=== PATIENT | male | born 1960 | race Caucasian/White ===

== ENCOUNTER → 2016-08-15 | Outpatient (CLI) | payer OTHER ==
[~2016-08-15] VITALS: Ht 172.7 cm; Wt 73.0 kg
[~2016-08-15] MED LIST: ADDERALL 10 MG10 MG PO; AMITRIPTYLINE H10 M3 PO; AMITRIPTYLINE H25 M2 PO; CELEXA20 MG PO; CELEXA40 MG PO; CRESTOR20 MG PO; CYCLOBENZAPRINE; FISH OIL 1,001000 M2 PO; FISHOIL; FLEXERIL; FLEXERIL PO; FOLIC ACID; FOLIC ACID1 MG PO; LIPITOR40 MG; LISINOPRIL20 MG PO; MIRALAX255 GM; NEURONTIN 300300 M1 PO; OXYCONTIN10 M1 PO; OXYCONTIN20 MG PO; PEPCID20 MG PO; PERCOCET 5-3251 EACH PO; PLAVIX 75 MG TA75 MG PO; TRILIPIX135 MG PO; ULTRAM 50MG TAB50 MG PO; VITAMIN B-12100 MC1; VITAMIN B-625 MG; VITAMIN D-32000 UNIT PO; VITAMIN D400 UNI1; VOLTAREN GEL 1100 G2 TOP; Vitamin D PO
--- NOTE | ~2016-08-15 | HPC ---
[facility] [place] [address] PAIN MANAGEMENT CONSULTATION Name: EMMANELI Tee Room #: [facility] [id number] Admission: 08/15/16 Attend Phys: Laureen Toribio MD Discharge: Date of : 64 Report #: [id number] THIS REPORT FOR: //name// CC: Laureen CHAMBERLAIN DATE OF SERVICE: 08/15/2016 CHIEF COMPLAINT: Pain, still radiating down into my leg on both sides. FOLLOWUP HISTORY: The patient is a 56-year-old gentleman who has been followed in the pain clinic because of lumbar radiculopathy. He underwent transforaminal epidural steroid injections at the last visit. He noted some improvement in his pain, but continues to have pain and discomfort down in both legs. The left leg is most problematic. He rates it as a 7/10. He continues to be limited in his ability to engage in activities of daily living. He finds that the Voltaren gel has been helpful and he would like to continue with that medication. PHYSICAL EXAMINATION: VITAL SIGNS: Blood pressure 140/88, pulse 85, respiratory rate 16, room air saturation 97%. MUSCULOSKELETAL: The patient has pain and discomfort in the low back and down into his legs bilaterally. He has not fallen since we saw him last. He does note some pain and discomfort with numbness and weakness in the lower extremities, particularly on the left side. IMPRESSION: Lumbar radiculopathy, status post instrumentation with rods in the low back area. Failed back syndrome. RECOMMENDATIONS: We discussed treatment options with the patient. Risks and benefits of an epidural steroid injection were again reviewed. Possible complications were discussed. The option of transforaminal epidural steroid injection in the L5-S1 distribution which is where the patient is experiencing this pain were reviewed. The patient elects to proceed. PROCEDURE NOTE: The patient was placed in the prone position. Fluoroscopy was used to identify the left and right L5-S1 distribution. After appropriate placement of a 20-gauge spinal needle, a total of 80 mg Depo-Medrol was placed on the left. Similar technique was used on the right. A total of 80 mg Depo-Medrol was injected into this area. The patient tolerated the procedure well. There were no complications. He will follow up in the future as needed. [address] [address] PAIN MANAGEMENT CONSULTATION Name: EMMANELI Randal Room #: REG [facility] [id number] Admission: 08/15/16 Attend Phys: Laureen Toribio MD Discharge: Date of : 64 Report #: [id number] We would like to thank you for letting us participate in his care. We hope he continues to improve. Total of 22 seconds fluoroscopy time was used. <ELECTRONICALLY SIGNED> By: Laureen Toribio MD 09/02/16 1018 [id number] [id number] Laureen Toribio MD /nt
[2016-08-15 13:08] VITALS: BP 140/88
== END | disposition home or self-care (01) ==
LOC: PAIN 07:32
DX: M54.16 Radiculopathy, lumbar region (principal); G89.29 Other chronic pain; F17.200 Nicotine dependence, unspecified, uncomplicated; M96.1 Postlaminectomy syndrome, not elsewhere classified; Z98.890 Other specified postprocedural states

== ENCOUNTER → 2016-12-17 | Outpatient (CLI) | payer OTHER ==
[~2016-12-17] VITALS: Ht 172.7 cm; Wt 75.3 kg
[~2016-12-17] MED LIST changes: +COREG3.125 MG PO; +NEURONTIN600 MG PO; +PLAVIX 75 MG TA75 M1 PO
--- NOTE | ~2016-12-17 | HPC ---
[facility] [place] [address] [place] [address] PAIN MANAGEMENT CONSULTATION Name: NELI CARTER Room #: REG [facility] ErisLeenaReeseLeena#: [id number] Admission: 12/17/16 Attend Phys: Laureen Toribio MD Discharge: Date of : 64 Report #: [id number] THIS REPORT FOR: //name// CC: Nessa Soto DO DATE OF SERVICE: 12/17/2016 FOLLOWUP COMPLAINT: "Still have pain down in my back and legs." FOLLOWUP HISTORY: The patient is a 56-year-old gentleman who has been followed in the pain clinic because of lumbar radiculopathy. He also has problems with his heart. As you recall, he had stents placed earlier a few months ago. He was doing relatively well. His states that he started to have symptoms similar to those he had experienced initially. After a reevaluation by his administrative aide, he was found to have a 90% lesion on the posterior side of his heart. A stent has been placed. He has noted the improvement. He feels that the Voltaren gel is helpful and that Elavil 25 mg 1-2 tablets at bedtime has been efficacious. He would like to have these renewed. PHYSICAL EXAMINATION: Blood pressure is 129/89, pulse 68, respiratory rate 16, room air saturation 98%. The patient has pain and discomfort which continued to radiate down into his back involving his legs. He has noted an improvement in his physical being. He feels that the stent in the posterior portion of his heart has increased his level of endurance and his ability to engage in activities of daily living with less discomfort. IMPRESSION: 1. Lumbar radiculopathy, status post instrumentation and rods in the low back area/failed back syndrome. 2. Cardiovascular history, status post stent placement about 2 months ago and new stent placement about a week ago. He had a 90% lesion of occlusion in the posterior portion of his heart. RECOMMENDATIONS: We will continue with his current medical regimen of Voltaren and Elavil. He will call us if he has any problems with his medications. We would like to thank you for letting us participate in his care. He continues to have pain and discomfort in the L5-S1 distribution. By: [id number] Laureen Toribio MD /nt
[2016-12-17 11:31] VITALS: BP 129/89
== END | disposition home or self-care (01) ==
LOC: PAIN 07:22
DX: M54.16 Radiculopathy, lumbar region (principal); G89.29 Other chronic pain; I25.2 Old myocardial infarction; Z95.9 Presence of cardiac and vascular implant and graft, unspecified; F17.200 Nicotine dependence, unspecified, uncomplicated; Z98.890 Other specified postprocedural states

== ENCOUNTER → 2017-06-12 | Outpatient (CLI) | payer OTHER ==
[~2017-06-12] VITALS: Ht 172.7 cm; Wt 74.7 kg
[~2017-06-12] MED LIST changes: +ATORVASTATIN CA40 MG PO; +NITROGLYCERIN0.4 MG SUBLING
--- NOTE | ~2017-06-12 | HPC ---
[facility] [address] [facility] [place] [address] PAIN MANAGEMENT CONSULTATION Name: EMMANELI Tee Room #: REG [facility].#: [id number] Admission: 06/12/17 Attend Phys: Laureen Toribio MD Discharge: Date of : 64 Report #: [id number] THIS REPORT FOR: //name// CC: Nessa Soto DO DATE OF SERVICE: 06/12/2017 FOLLOWUP COMPLAINT: "I fell and broke some ribs, but my back is hurting the worst. I would like to get an injection there." FOLLOWUP HISTORY: The patient is a 56-year-old gentleman who has been seen in the pain clinic in the past because of lumbar radiculopathy. He has had back surgeries. He has instrumentation in the lower portion of his back. He states that he had trauma to his ____. He broke some ribs. At this point, he is having pain and discomfort in the lower portion of his back, which radiates down into his legs. He would like to proceed with a transforaminal epidural steroid injection at this juncture. He is off his Plavix. He feels that this would be more helpful than the intercostal rib injections at this juncture. PHYSICAL EXAMINATION: Blood pressure 122/83, pulse 71, respiratory rate 14, room air saturation 96%. Height 5 feet 8 inches, weight 164 pounds, BMI is 25. The patient has pain and discomfort, which radiates down to the lower portion of his back into the L5-S1 distribution bilaterally. IMPRESSION: 1. Lumbar radiculopathy, status post instrumentation and rods in the lower portion of his back with failed back syndrome. 2. Cardiovascular history, status post stent placements and followed by his [employer] ax consultant - the patient has stopped taking the Plavix for a week. 3. Rib fractures. RECOMMENDATIONS: We discussed treatment options with the patient and his . Risks and benefits of an epidural steroid injection were again reviewed. Possible complications were discussed. He elects to proceed. PROCEDURE NOTE: The patient was placed in prone position. Fluoroscopy was used to identify the L5-S1 nerve roots on the left as well as the right. After appropriate cleansing with Betadine solution, this area was infiltrated with 0.25% bupivacaine. A total of 2 mL on each side was placed. A 20-gauge spinal needle was then advanced into the appropriate placement using fluoroscopy. After appropriate visualization, a total of 80 mg Depo-Medrol was injected on the left side and a total of 80 mg Depo-Medrol was injected on the right. The patient tolerated the procedure well. His pain was rated as 5/10 at the time of [address] [address] PAIN MANAGEMENT CONSULTATION Name: NELI CARTER Room #: REG CL Holly#: [id number] Admission: 06/12/17 Attend Phys: Laureen Toribio MD Discharge: Date of : 64 Report #: [id number] discharge. There were no clinical compromise noted with muscles or weakness. He will follow up in the near future. He will resume taking Plavix. We would like to thank you for letting us participate in his care. We hope he continues to improve. By: [phone] Laureen Toribio MD /PMT
[2017-06-12 11:32] VITALS: BP 122/83
== END | disposition home or self-care (01) ==
LOC: PAIN 09-19 09:55
DX: M54.16 Radiculopathy, lumbar region (principal); Z95.1 Presence of aortocoronary bypass graft; F17.200 Nicotine dependence, unspecified, uncomplicated

== ENCOUNTER → 2017-07-03 | Outpatient (CLI) | payer OTHER ==
[~2017-07-03] VITALS: Ht 172.7 cm; Wt 76.7 kg
--- NOTE | ~2017-07-03 | HPC ---
[facility] [place] [address] PAIN MANAGEMENT CONSULTATION Name: EMMANELI Tee Room #: REG [facility] [id number] Admission: 07/03/17 Attend Phys: Laureen Toribio MD Discharge: Date of : 64 Report #: [id number] THIS REPORT FOR: //name// CC: Nessa Soto DO DATE OF SERVICE: 07/03/2017 FOLLOWUP COMPLAINT: The pain was helped after the last injection, but still having some pain down into my right side and left side. FOLLOWUP HISTORY: The patient is a very pleasant 56-year-old gentleman who has been seen in the pain clinic because of chronic back pain secondary to failed back syndrome. As you recall, he has instrumentation with pedicle screws and rods in his lower back. He underwent a transforaminal epidural steroid injection at the last visit. He did note improvement in his pain. He rates it as a 7/10 at this juncture. It still continues to be problematic and limits his ability to engage in activities of daily living. He feels that another injection would be helpful and would like to proceed. He has had no complications from the last procedure. PHYSICAL EXAMINATION: Blood pressure 134/96, pulse 82, respiratory rate 16, room air saturation 97%. Height 5 feet 8 inches, weight 169 pounds, BMI is 25. The patient has pain and discomfort in the right and left L5-S1 nerve root distribution. IMPRESSION: 1. Lumbar radiculopathy, status post instrumentation and rods in the lower portion of his back in L3, L4, and L5 and in the sacral area. 2. Cardiovascular history is stable at this juncture status post stent placement. The patient states that he was able to stop taking his Plavix for a week with the agreement breech with his licensed mortgage loan officer. 3. History of rib fractures. RECOMMENDATIONS: We discussed treatment options with the patient. Risks and benefits again of an epidural steroid injection were discussed. They are possibility of infection, increased muscle soreness, headache, bleeding, increased muscle trauma, nerve damage and the patient elects to proceed. PROCEDURE NOTE: The patient was placed in the prone position. The left and right L5-S1 area were identified. A 20-gauge spinal needle was then advanced into the appropriate position using fluoroscopy. After appropriate placement was noted, a total of 80 mg Depo-Medrol was injected in the left and 80 mg of Depo-Medrol was injected in the right. The area had been infiltrated with 0.25% [address] [address] PAIN MANAGEMENT CONSULTATION Name: NELI CARTER Room #: REG [facility]#: [id number] Admission: 07/03/17 Attend Phys: Laureen Toribio MD Discharge: Date of : 64 Report #: [id number] bupivacaine. The patient tolerated the procedure well. There were no complications. He remained in the pain clinic for an appropriate amount of time. He will follow up in the future as needed. We would like to thank you for letting us participate in his care. We hope he continues to improve. <ELECTRONICALLY SIGNED> By: Laureen Toribio MD 07/16/17 0945 [id number] [id number] Laureen Toribio MD /PMT
[2017-07-03 13:34] VITALS: BP 134/96
== END | disposition home or self-care (01) ==
LOC: PAIN 07:06
DX: M54.16 Radiculopathy, lumbar region (principal); G89.29 Other chronic pain; I25.2 Old myocardial infarction; F17.210 Nicotine dependence, cigarettes, uncomplicated; Z86.79 Personal history of other diseases of the circulatory system; Z87.81 Personal history of (healed) traumatic fracture; Z98.890 Other specified postprocedural states; Z79.899 Other long term (current) drug therapy; Z79.891 Long term (current) use of opiate analgesic

== ENCOUNTER → 2017-08-28 | Outpatient (CLI) | payer OTHER ==
[~2017-08-28] VITALS: Ht 172.7 cm; Wt 77.6 kg
--- NOTE | ~2017-08-28 | HPC ---
[facility] [place] [place] [address] PAIN MANAGEMENT CONSULTATION Name: NELI CARTER Room #: REG [facility] Gaudencio.#: [id number] Admission: 08/28/17 Attend Phys: Laureen Toribio MD Discharge: Date of : 64 Report #: [id number] THIS REPORT FOR: //name// CC: Laureen Castillo DO DATE OF SERVICE: 08/28/2017 FOLLOWUP COMPLAINT: I am here for another injection, the last one was helpful. FOLLOWUP HISTORY: The patient is a 57-year-old gentleman, who has been seen in the pain clinic because of lumbar radiculopathy. As you recall, he has had low back surgeries with fusion with rods and pedicle screws. He returns today indicating that his pain has started to reoccur. It involves his lower back with pain radiating down into his tailbone and down into his legs bilaterally to the level of his knee. This is most problematic in the posterior portion of his legs. He has undergone epidural steroid injections using the transforaminal approach in the past and gleaned benefits from these. He is not on a blood thinner at this juncture and would like to proceed with another epidural steroid injection. He has not had any new problems with his heart. As you recall, he has had stents placed. Overall, things continue to go reasonably well. ALLERGIES: No known drug allergy. MEDICATIONS: Lipitor 40 mg daily, nitroglycerin 0.4 sublingual p.r.n., Voltaren gel 1% 2 grams topical q.i.d., amitriptyline 25 mg at bedtime, gabapentin 600 mg q.i.d., Celexa 20 mg daily, Coreg 3.125 mg, Plavix 75 mg, Flexeril 10 mg, Pepcid 20 mg, vitamin D3, OxyContin 10 mg t.i.d., folic acid, fish oil, Zestril 20 mg, MiraLax 255 grams, vitamin B12, vitamin B6. PAIN CLINIC ASSESSMENT: 1. No significant history of osteoarthritis, history of rheumatoid arthritis. 2. Height 5 feet 8 inches, weight 171 pounds, BMI is 26. 3. VITAL SIGNS: Blood pressure 156/102, pulse 68, respiratory rate 16, room air saturation is 96%. 4. Pain intensity 02/02. 5. Fall risk. The patient has not fallen in the last 3 months. He needs no assistance with ambulating. 6. The patient is on Plavix. 7. The patient is being treated for hypertension. 8. The patient continues on a medication regimen, which includes opioids and has signed a contract. 9. Risk management tool. 10. Functional assessment tool. 11. Recreational. The patient denies use of recreational [place] [address] PAIN MANAGEMENT CONSULTATION Name: PATRICIA CARTERORY Randal [facility] #: [facility] [id number] Admission: 08/28/17 Attend Phys: Laureen Toribio MD Discharge: Date of : 64 Report #: [id number] stopped smoking since his heart event. 12. Denies use of alcoholic beverages. IMPRESSION: 1. Lumbar radiculopathy with exacerbation secondary to failed back syndrome. 2. History of Myofascial pain. 3. History of right shoulder pain. 4. Hypertension. 5. Anticoagulated secondary to stents in his heart. 7. History of rib fractures. 8. Hypercholesterolemia. RECOMMENDATIONS: We discussed treatment option with the patient. He has gleaned significant benefit from transforaminal epidural steroid injections. At this juncture, he rates his pain as a 7/10. He feels that epidural steroid injections have been beneficial and would like to proceed with another. He has stopped taking his Plavix medication, so he is not anticoagulated today. He would also like to have his medications renewed. We have reviewed them and we will provide him with a script for the next 3 months. He is aware of the possible complication of the procedure, which we discussed. They include but are not limited to infection, increased muscle soreness, headache, bleeding, spinal nerve damage, and the patient elects to proceed. PROCEDURE NOTE: The patient was helped on to the examination table. His back was sterilely prepped in the lumbar area. Betadine was used. A 17-gauge Tuohy epidural needle was used. 0.25% bupivacaine had been infiltrated into the area prior to the injection. Anterior posterior as well as lateral viewing using the Fluoroscopy was used to ensure appropriate needle placement. At the left L5-S1 area, the target area was noted. A skin wheal was raised. A 20-gauge spinal needle was then advanced into the appropriate placement using anterior, posterior, and lateral fluoroscopy examination. The right contralateral side was treated in a like fashion after a skin wheal with 0.2% bupivacaine was provided a 25-gauge needle was then advanced into the right L5-S1 area. After appropriate examination using fluoroscopy. A total of 80 mg Depo-Medrol was injected on the left and 80 mg of Depo-Medrol was injected on the right. The patient's pain decreased from 7-5 at the time of discharge. There were no complications. He will resume his Plavix after the procedure. He will call us if he has any problems with his medications. We would like to thank you for letting us participate in his care. We hope he continues to improve. <ELECTRONICALLY SIGNED> By: Laureen Toribio MD 10/07/17 1421 1428 [id number] Laureen Toribio MD /PMT
[2017-08-28 10:59] VITALS: BP 156/102
== END | disposition home or self-care (01) ==
LOC: PAIN 06:52
DX: M54.16 Radiculopathy, lumbar region (principal); M96.1 Postlaminectomy syndrome, not elsewhere classified; M25.511 Pain in right shoulder; E78.00 Pure hypercholesterolemia, unspecified; I10 Essential (primary) hypertension; Z79.01 Long term (current) use of anticoagulants; Z87.81 Personal history of (healed) traumatic fracture; Z79.899 Other long term (current) drug therapy; Z98.890 Other specified postprocedural states

== ENCOUNTER → 2018-01-08 | Outpatient (CLI) | payer OTHER ==
[~2018-01-08] VITALS: Ht 172.7 cm; Wt 77.5 kg
--- NOTE | ~2018-01-08 | HPC ---
[facility] [place] [address] PAIN MANAGEMENT CONSULTATION Name: EMMANELI Tee [facility] [id number] Admission: 01/08/18 Attend Phys: Laureen Toribio MD Discharge: Date of : 64 Report #: [id number] THIS REPORT FOR: //name// CC: Laureen Toribio Physician staff YARELY CHAMBERLAIN DATE OF SERVICE: 01/08/2018 FOLLOWUP COMPLAINT: "Here, I would like to get another injection. Had less pain in my legs after the last injection." FOLLOWUP HISTORY: The patient is a 57-year-old gentleman who has been followed in the Pain Clinic. As you recall, he has had back pain, which was problematic and treated in the past with epidural steroid injections. Those soon became unproductive. The patient underwent a fusion in the lower portion of his back with rods and pedicle screws. He then noted pain and discomfort in the L5-S1 areas bilaterally. He has undergone transforaminal epidural steroid injection to help control his pain. He feels that these continue to be beneficial. He has returned today and would like to proceed with another injection. He has had no complication from their use. Has a history of cardiac problems. He has been using Plavix and that he has stents in place. He stopped this medication and would like to proceed with treatment today. ALLERGIES: No known drug allergies. MEDICATIONS: Lipitor 40 mg daily, nitroglycerin 0.4 mg sublingual, Voltaren gel 1% 2 grams topical q.i.d., amitriptyline 25 mg at bedtime, gabapentin 600 mg q.i.d., Celexa 20 mg daily, Coreg 3.125 mg, Plavix 75 mg, Flexeril 10 mg, Pepcid 20 mg, multivitamin D3, OxyContin 10 mg 1 p.o. t.i.d., folic acid, fish oil, Zestril 20 mg, MiraLax 255 grams, vitamin B12, vitamin B6. PAIN CLINIC ASSESSMENT: 1. The patient has some arthritic changes in the lower portion of his back and has had fusion with rods and pedicle screws. 2. Height 5 feet 8 inches, weight 170 pounds, BMI is 26. 3. Vital signs: Blood pressure 125/90, pulse 65, respiratory rate 16, room air saturation 97%. 4. Pain intensity -02/02. 5. Fall risk. The patient has not fallen in the last 3 months. 6. Blood thinner. The patient has not taken his Plavix for the last 7 days and will resume it after the procedure. 7. Hypertension. 8. Opioid therapy greater than 6 weeks. The patient is on a contract and gets medications on a regular basis because of chronic pain. 9. [place] [address] PAIN MANAGEMENT CONSULTATION Name: PATRICIA CARTERORY Randal [facility] #: [facility] [id number] Admission: 01/08/18 Attend Phys: Laureen Toribio MD Discharge: Date of : 64 Report #: [id number] 10. Functional assessment tool. 11. Recreational drug use. The patient denies use of recreational drugs. 12. Tobacco: The patient has stopped smoking, has a 93-gnpo-srpz smoking history, 1 pack per day when he stopped. 13. Alcohol: The patient denies use of alcoholic beverages. PHYSICAL EXAMINATION: GENERAL: The patient is a well-developed, well-nourished white male. He appears his stated age. He is alert and oriented x 3. His speech is fluent, but somewhat slow. That is his usual marly. HEENT: Normocephalic, atraumatic. Extraocular eye muscles intact. The patient wears glasses. Hearing is within normal limits. Mucous membranes are moist. NECK: Without adenopathy or JVD. HEART: Regular rate. ABDOMEN: Nontender. LUNGS: Clear to auscultation without rhonchi or rales. MUSCULOSKELETAL: Without significant scoliosis, kyphosis or lordosis. The patient has pain and discomfort in the lower portion of his back with pain radiating down into the left and right leg in the L5-S1 distribution. Muscle strength is judged to be 5/5 for the major muscle groups. IMPRESSION: 1. Lumbar radiculopathy with exacerbation of pain secondary to failed back syndrome in L5-S1, left and right. 2. History of myofascial pain. 3. History of right shoulder pain. 4. Hypertension. 5. Anticoagulation secondary to heart stents. 6. History of rib fracture. 7. Hypercholesterolemia. RECOMMENDATIONS: We discussed treatment options with the patient. Risks and benefits of an epidural steroid injection using the transforaminal approach were discussed. They include but are not limited to infection, increased muscle soreness, headache, bleeding, worsening of pain, no improvement in pain and the patient elects to proceed. PROCEDURE NOTE: The patient was taken to the examination room. He was then assisted in getting on the examination table/fluoroscopy table. Fluoroscopy using anterior, posterior as well as lateral viewing were used to place the needle in the appropriate place. His back has been sterilely prepped with Betadine and infiltrated with 0.25% bupivacaine. A 22-gauge spinal needle was then placed on the left side. The skin was anesthetized with 2 mL of 0.25% bupivacaine. The 20-gauge spinal needle was then advanced into the area of the L5 nerve root using the transforaminal approach. The contralateral side was treated likewise and had been sterilely prepped. A skin wheal was placed with a [facility] [address] [place] [address] PAIN MANAGEMENT CONSULTATION Name: NELI CARTER Room #: REG [facility].#: [id number] Admission: 01/08/18 Attend Phys: Laureen Toribio MD Discharge: Date of : 64 Report #: [id number] 25-gauge needle. A spinal needle, 20 mg or 20-gauge was then advanced into the right L5 nerve root area using the transforaminal approach. An anterior, posterior as well as lateral view indicated appropriate placement of needles. A total of 80 mg Depo-Medrol was placed on the right side and 80 mg on the left. The patient tolerated the procedure well. He remained in the Pain Clinic for an appropriate amount of time. He will follow up in the near future. We would like to thank you for letting us participate in his care. We hope he continues to improve. <ELECTRONICALLY SIGNED> By: Laureen Toribio MD 01/14/18 0936 1409 [id number] Laureen Toribio MD /nt
[2018-01-08 09:35] VITALS: BP 125/90
== END | disposition home or self-care (01) ==
LOC: PAIN 10-23 09:28
DX: M54.16 Radiculopathy, lumbar region (principal); G89.29 Other chronic pain; M96.1 Postlaminectomy syndrome, not elsewhere classified; I10 Essential (primary) hypertension; E78.00 Pure hypercholesterolemia, unspecified; Z79.01 Long term (current) use of anticoagulants; Z95.5 Presence of coronary angioplasty implant and graft; Z87.81 Personal history of (healed) traumatic fracture; Z87.39 Personal history of other diseases of the musculoskeletal system and connective tissue; Z98.890 Other specified postprocedural states; Z79.899 Other long term (current) drug therapy; Z87.891 Personal history of nicotine dependence; Z79.891 Long term (current) use of opiate analgesic

== ENCOUNTER → 2018-09-08 | Outpatient (CLI) | payer OTHER ==
[~2018-09-08] VITALS: Ht 172.7 cm; Wt 77.2 kg
--- NOTE | ~2018-09-08 | HPC ---
[facility] [place] [place] [address] PAIN MANAGEMENT CONSULTATION Name: NELI CARTER Room #: REG [facility] ErisLeenaReese.#: [id number] Admission: 09/08/18 Attend Phys: Laureen Toribio MD Discharge: Date of : 64 Report #: [id number] THIS REPORT FOR: //name// CC: Laureen Toribio Physician staff KAMALJIT Castillo DO DATE OF SERVICE: 09/08/2018 PRIMARY CARE PHYSICIAN: Kamaljit Castillo DO FOLLOWUP COMPLAINT: The pain has done pretty well, but started to come back and would like another injection in the low back. FOLLOWUP HISTORY: The patient is a very pleasant 58-year-old gentleman who has been followed in the pain clinic for quite some time. As you recall, he has a significant heart history. He has also had lumbar radiculopathy, which has been problematic in the L5-S1 dermatomal distribution on the left as well as the right. He has undergone transforaminal epidural steroid injections in the past and found that these are beneficial. He has rods and pedicle screws in place in his lower back. Notes that his pain today is 6-7/10. Overall, things have been going reasonably well and he has noticed an uptake in his pain and would like to undergo a transforaminal epidural steroid injection to help quell these pains. He would like to proceed with the injections today. He has not had any significant cardiac problems since we saw him last. ALLERGIES: No known drug allergies. CURRENT MEDICATIONS: Lipitor 40 mg, nitroglycerin 0.4 mg sublingual, Voltaren gel 1% 2 g topical q.i.d., amitriptyline 25 mg at bedtime, gabapentin 600 mg q.i.d., Celexa 20 mg daily, Coreg 3.125 mg, Plavix 75 mg, Flexeril 10 mg, Pepcid 20 mg, multivitamin D3, OxyContin 10 mg 1 p.o. t.i.d., folic acid, fish oil, Restoril 20 mg, MiraLax 255 mg, vitamin B12, vitamin B6. PAIN CLINIC ASSESSMENT AND PQRS: 1. Osteoarthritis. The patient has some arthritic changes in the lower portion of his back and has had fusion with rods and pedicles placed. The patient is not being treated for rheumatoid arthritis. 2. Height 5 feet 8 inches, weight 170 pounds, BMI is 25.9. 3. Vital Signs: Blood pressure 161/97, pulse 62, respiratory rate 18, room air saturation 97%. 4. Pain intensity, 6-7/10. 5. Fall history: The patient has not fallen in the last 3 months. 6. Blood thinner. The patient is on Plavix. He has stopped taking the Plavix medication with the desire to undergo transforaminal epidural steroid [address] [address] PAIN MANAGEMENT CONSULTATION Name: NELI CARTER Room #: REG [facility]#: [id number] Admission: 09/08/18 Attend Phys: Laureen Toribio MD Discharge: Date of : 64 Report #: [id number]. 7. Hypertension. The patient is being treated for hypertension. 8. Opioid therapy greater than 6 weeks. 9. Risk assessment tool, low for opioid use. 10. Functional assessment tool. 11. Recreational drug use. The patient denies use of recreational drugs. 12. Tobacco: The patient denies use of tobacco. 13. Alcohol: The patient has used alcohol in the past. Does not use it on a regular basis. PHYSICAL EXAMINATION: GENERAL: The patient is a well-developed, well-nourished, white male. Appears his stated age. He is alert and oriented x 3. His affect is appropriate. Speech is fluent. The patient does have a slow delivery and marly to his speech. HEENT: Normocephalic, atraumatic. Extraocular eye muscles intact. Sclerae nonicteric. Mucous membranes are moist. The patient has glasses on. NECK: Without adenopathy or JVD. HEART: Regular rate. ABDOMEN: Nontender. Bowel sounds present. LUNGS: Clear to auscultation without rhonchi or rales. MUSCULOSKELETAL: Without significant scoliosis, kyphosis or lordosis. The patient has pain and discomfort in lower portion of his back with pain radiating down the L5-S1 dermatomal distribution on the left as well as the right with sensory changes and muscle weakness. IMPRESSION: 1. 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 2. History of myofascial pain. 3. History of right shoulder pain. 4. Hypertension. 5. Anticoagulation secondary to heart stents. 6. History of rib fractures. 7. Hypercholesterolemia. RECOMMENDATIONS: We discussed treatment options with the patient. Risks and benefits of a transforaminal epidural steroid injection to the back area were discussed. Possible complications of the procedure were reviewed. They include but are not limited to infection, worsening of pain, bleeding, nerve damage and paralysis. The patient elects to proceed. PROCEDURE NOTE: The patient was taken to the procedure area. He was assisted in getting on the examination table. A pillow was placed under his abdomen to bolster and improve positioning. His back was sterilely prepped with a Betadine solution and allowed to dry. The anterior, posterior as well as lateral viewing [facility] [address] [place] [address] PAIN MANAGEMENT CONSULTATION Name: NELI CARTER [facility] [id number] Admission: 09/08/18 Attend Phys: Laureen Toribio MD Discharge: Date of : 64 Report #: [id number] with fluoroscopy were undertaken. The patient's left transforaminal area was numbed using 0.25% bupivacaine on the left side at the L5-S1 area and on the right side, similar numbing was performed using a 25-gauge needle and infiltrated with 0.25% bupivacaine. A 20-gauge spinal needle was then advanced using fluoroscopy into the appropriate positioning for a transforaminal injection on the left as well as on the right after appropriate placement of the needles was verified. Aspiration was negative. Total of 80 mg Depo-Medrol was injected on the left and 80 mg Depo-Medrol was injected on the right. There were no complications. The patient remained in the pain clinic for an appropriate amount of time. He will follow up in the future as needed. We would like to thank you for letting us participate in his care. We hope he continues to improve. By: [id number] Laureen Toribio MD /LAUREN
[2018-09-08 10:46] VITALS: BP 161/97
--- NOTE | 2018-09-08 11:01 | NUR ---
Pain Clinic Assessment: 1. History of Osteoarthritis: History of Rheumatoid Arthritis: YES PER PT 2. Height: 5 ft. 8 in. 172.7 cm. Weight: 170.2 lb. oz. 77.202 kg. Patient's BMI: 25.9 3. Vital Signs: BP: 161/97 Pulse: 62 Resp: 18 Temp: 02 Sat: 97 ECG Mon: 4. Pain Intensity: 6-7 5. Fall Risk: Dizziness: N Needs help standing or walking: N Fallen in the last 3 months: Y Fall risk comments: 6. Patient on Blood Thinner: Clopidogrel Bisulf(Plavix 7. History of Hypertension: Y 8. Opioid Therapy greater than 6 weeks: Y Opiate Contract Signed: 9. Risk Assessment Tool Provided: 10. Functional Assessment Tool: 11. Recreational Drug Use: Never Drug Type: Tobacco Use: Current Every Day Smoker Tobacco Type: Amount or Packs/day: How Many Years: Alcohol Use: Past use Frequency: Quant:
== END | disposition home or self-care (01) ==
LOC: PAIN 07:04
DX: M54.16 Radiculopathy, lumbar region (principal); I10 Essential (primary) hypertension; E78.00 Pure hypercholesterolemia, unspecified; M19.90 Unspecified osteoarthritis, unspecified site; F17.210 Nicotine dependence, cigarettes, uncomplicated; Z98.890 Other specified postprocedural states; Z79.01 Long term (current) use of anticoagulants

== ENCOUNTER → 2019-04-08 | Outpatient (CLI) | payer OTHER ==
[~2019-04-08] VITALS: Ht 172.7 cm; Wt 71.7 kg
[~2019-04-08] MED LIST changes: +IBUPROFEN 800800 M1 PO; +OXYCODONE HCL10 MG PO; +OXYCODONE HCL20 M1 PO; +PROTONIX40 M1 PO
[2019-04-08 09:38] VITALS: BP 112/73
--- NOTE | 2019-04-08 09:51 | NUR ---
Pain Clinic Assessment: 1. History of Osteoarthritis: Not Applicable History of Rheumatoid Arthritis: HANDS BACK SHOULDERS 2. Height: 5 ft. 8 in. 172.7 cm. Weight: 158.0 lb. oz. 71.668 kg. Patient's BMI: 24.0 3. Vital Signs: BP: 112/73 Pulse: 64 Resp: 16 Temp: 02 Sat: 97 ECG Mon: 4. Pain Intensity: 8 5. Fall Risk: Dizziness: N Needs help standing or walking: N Fallen in the last 3 months: Y Fall risk comments: 6. Patient on Blood Thinner: Clopidogrel Bisulf(Plavix 7. History of Hypertension: Y 8. Opioid Therapy greater than 6 weeks: Y Opiate Contract Signed: 9. Risk Assessment Tool Provided: 3-LOW 10. Functional Assessment Tool: 11. Recreational Drug Use: Never Drug Type: Tobacco Use: Current Every Day Smoker Tobacco Type: Cigarettes Amount or Packs/day: 1 PACK How Many Years: 30 Alcohol Use: Past use Frequency: Quant:
--- NOTE | 2019-04-18 08:54 | HPC ---
[facility] [place] [address] PAIN MANAGEMENT CONSULTATION Name: EMMANELI Tee Room #: REG [facility].#: [id number] Admission: 04/08/19 ������������������ Attend Phys: Laureen Toribio MD Discharge: ������������������ Date of : 64 Report #: [id number] THIS REPORT FOR: //name// CC: Laureen Toribio Physician staff KAMALJIT CHAMBERLAIN DATE OF SERVICE: 04/08/2019 PRIMARY CARE PHYSICIAN: Kamaljit Chamberlain DO CHIEF COMPLAINT: "Worsening of back pain with pain radiating down into my leg." HISTORY: The patient is a 58-year-old gentleman who has been followed in the pain clinic because of chronic pain in the back. He has undergone back surgery. He has had rods and pedicle screws placed in the low back area. He has noticed a worsening of his pain. His mother moved. He and his provided most of the labor for moving. They did a lot of boxing as well as a lot of lifting and bending. He noticed that has increased pain and discomfort in his low back area and he would like to proceed with another epidural steroid injection. These have provided greater than 50% improvement when they have been performed. He rates his pain today as an 8/10. He recently received a flu shot about 9 days ago at [facility]. He would like to return in the near future to undergo an epidural steroid injection to help control his back pain. ALLERGIES: No known drug allergies. CURRENT MEDICATIONS: Lipitor 40 mg, nitroglycerin 0.4 mg sublingual, Voltaren gel 1% 2 grams topical q.i.d., amitriptyline 25 mg at bedtime, gabapentin 600 mg q.i.d., Celexa 20 mg daily, Coreg 3.125 mg, Plavix 75 mg, Flexeril 10 mg, Pepcid 20 mg, multivitamin D3, OxyContin 10 mg 1 p.o. t.i.d., folic acid, fish oil, Restoril 20 mg, MiraLax 255 mg, vitamin B12, vitamin D2. PAIN CLINIC ASSESSMENT AND PQRS: 1. The patient has some arthritic changes in his low back area. He has had fusion with rods and pedicle screws placed. The patient is not being treated for rheumatoid arthritis. 2. Height 5 feet 8 inches, weight 158 pounds, BMI is 24.0. 3. Vital signs: Blood pressure is 112/73, pulse 64, respiratory rate 16, room air saturation 97. 4. Pain intensity 8/10. 5. Fall history: The patient has not fallen in the last 3 months. 6. Blood thinner. The patient is on a blood thinning medication Plavix. 7. Hypertension. The patient is being treated for hypertension. 8. Opioids greater than 6 weeks. The patient [place] [address] PAIN MANAGEMENT CONSULTATION Name: NELI CARTER Room #: REG [facility] Barrera#: [id number] Admission: 04/08/19 ������������������ Attend Phys: Laureen Toribio MD Discharge: ������������������ Date of : 64 Report #: [id number] 9. Risk assessment tool, low for opioid use. 10. Functional assessment tool . 11. Recreational drug use. The patient denies. 12. Tobacco: The patient has smoked cigarettes. Smokes 1 pack of cigarettes per day, has smoked for the last 30 years. 13. Alcohol. The patient denies frequent use of alcoholic beverages. PHYSICAL EXAMINATION: GENERAL: The patient is a well-developed, well-nourished white male. Appears his stated age. He is alert and oriented x 3. His affect is appropriate. Speech is fluent. HEENT: Normocephalic, atraumatic. Extraocular eye muscles intact. The patient's slow delivery and marly is his usual speech pattern. NECK: Without adenopathy or JVD. HEART: Regular rate. ABDOMEN: Nontender. Bowel sounds present. LUNGS: Clear to auscultation without rhonchi or rales. MUSCULOSKELETAL: Without significant scoliosis, kyphosis or lordosis. The patient has a well-healed scar in the lower portion of his back. Complains the pain is radiating down the L5-S1 dermatomal distribution on the left as well as on the right with weakness and sensory changes. IMPRESSION: 1. Lumbar radiculopathy exacerbated by failed back syndrome in the L5-S1 area on the left as well as right. 2. History of myofascial pain. 3. History of right shoulder pain. 4. Hypertension. 5. Anticoagulation secondary to heart stents. 6. History of rib fracture. 7. Hypercholesterolemia. RECOMMENDATIONS: We discussed treatment options with the patient. At this juncture, we will have the patient return to the pain clinic at which time he will then undergo an epidural steroid injection using the transforaminal approach, which has been beneficial in the past. The patient is aware that he will need to stop his Plavix prior to coming to the Pain Clinic. The patient recently underwent a flu shot. We explained to him that we generally do not do epidural steroid injections within 2 weeks of a flu shot. Hopefully, this would not interfere with the patient's ability to manufacture appropriate amounts of antibody. A script for Voltaren gel to be applied to the upper extremity has been provided. The patient will call us if he has any concerns. [address] [place] [address] PAIN MANAGEMENT CONSULTATION Name: NELI CARTER Room #: REG [facility]..#: [id number] Admission: 04/08/19 ������������������ Attend Phys: Laureen Toribio MD Discharge: ������������������ Date of : 64 Report #: [id number] We would like to thank you for letting us participate in his care. We hope he continues to improve. ��������������������������������������������� <ELECTRONICALLY SIGNED> ���������������������������������������� By: Laureen Toribio MD ��������������������������������������������� 04/18/19 0854 [id number] Laureen Toribio MD /PMT
== END ==
LOC: PAIN 06:45
DX: M54.16 Radiculopathy, lumbar region (principal); M25.511 Pain in right shoulder; M79.18 Myalgia, other site; I10 Essential (primary) hypertension; E78.00 Pure hypercholesterolemia, unspecified; Z79.899 Other long term (current) drug therapy

== ENCOUNTER → 2019-09-30 | Outpatient (CLI) | payer OTHER ==
[~2019-09-30] VITALS: Ht 172.7 cm; Wt 74.8 kg
[~2019-09-30] MED LIST changes: +MEDROLDOSEPACK PO
[2019-09-30 10:10] VITALS: BP 127/81
--- NOTE | 2019-09-30 10:26 | NUR ---
Pain Clinic Assessment: 1. History of Osteoarthritis: Not Applicable History of Rheumatoid Arthritis: HANDS BACK SHOULDERS 2. Height: 5 ft. 8 in. 172.7 cm. Weight: 165.0 lb. oz. 74.844 kg. Patient's BMI: 25.1 3. Vital Signs: BP: 127/81 Pulse: 65 Resp: 14 Temp: 02 Sat: 99 ECG Mon: 4. Pain Intensity: 8 5. Fall Risk: Dizziness: N Needs help standing or walking: N Fallen in the last 3 months: N Fall risk comments: 6. Patient on Blood Thinner: Clopidogrel Bisulf(Plavix 7. History of Hypertension: Y 8. Opioid Therapy greater than 6 weeks: Y Opiate Contract Signed: 9. Risk Assessment Tool Provided: 3-LOW 10. Functional Assessment Tool: 11. Recreational Drug Use: Never Drug Type: Tobacco Use: Current Every Day Smoker Tobacco Type: Amount or Packs/day: How Many Years: Alcohol Use: Past use Frequency: Quant:
--- NOTE | 2019-10-06 13:51 | HPC ---
[facility] [place] [address] [place] [address] PAIN MANAGEMENT CONSULTATION Name: NELI CARTER Room #: REG [facility].#: [id number] Admission: 09/30/19 Attend Phys: Laureen Toribio MD Discharge: Date of : 64 Report #: [id number] THIS REPORT FOR: cc: TIM GUERRERO Physician not on staff Laureen Toribio MD ~ CC: Laureen Toribio Physician staff TIM Castillo DO DATE OF SERVICE: 09/30/2019 CHIEF COMPLAINT: "I was going to get an injection today, but I have continued to take my blood thinning medicine." HISTORY: The patient is a 59-year-old gentleman who has been followed in the pain clinic because of chronic back pain. He has had back surgery. He has screws as well as rods in the lower portion of his back. He notes that his pain continues to be somewhat problematic. Epidural steroid injections in the past have been helpful. He rates his pain as about 50% improved with his current medications. He scores his pain as an 8/10 today. He forgot to stop his Plavix. He would like to have his medications renewed. ALLERGIES: No known drug allergies. CURRENT MEDICATIONS: Lipitor 40 mg, nitroglycerin 0.4 mg sublingual, Voltaren gel 1% topical q.i.d., amitriptyline 25 mg at bedtime, gabapentin 600 mg q.i.d., Celexa 20 mg daily, Coreg 3.125 mg, Plavix 75 mg, Flexeril 10 mg, Pepcid 20 mg, multivitamins D3, OxyContin 10 mg 1 p.o. t.i.d., folic acid, fish oil, Restoril 20 mg, MiraLax 255 mg, vitamin B12, vitamin D2. PAIN CLINIC ASSESSMENT AND PQRS: 1. The patient does have some rheumatoid arthritic changes in his hands. Has some pain in his back and shoulders. 2. Height 5 feet 8 inches, weight 165 pounds, BMI is 25.1. 3. Vital signs: Blood pressure 127/81, pulse 65, respiratory rate is 14, room air saturation 99%. 4. Pain intensity 03/05. 5. Fall history: The patient has not fallen in the last 3 months. 6. Blood thinner. The patient is on Plavix. 7. History of hypertension. The patient is being treated for hypertension. 8. Opioids greater than 6 weeks. The patient receives medication from [facility]. 9. Risk assessment tool, low for opioid use. 10. Functional [place] [address] PAIN MANAGEMENT CONSULTATION Name: NELI CARTER Room #: REG [facility]#: [id number] Admission: 09/30/19 Attend Phys: Laureen Toribio MD Discharge: Date of : 64 Report #: [id number] 11. Recreational drug use: The patient denies. 12. Tobacco: The patient smokes cigarettes. 13. Alcohol. The patient denies frequent use of alcoholic beverages. Again, smokes cigarettes 1 pack a day and has smoked for the last 30 years. PHYSICAL EXAMINATION: GENERAL: The patient is a well-developed, well-nourished white male. Appears his stated age. He is alert and oriented x 3. His affect is appropriate. Speech is fluent. HEENT: Normocephalic, atraumatic. Extraocular eye muscles intact. Sclerae nonicteric. Mucous membranes are moist. NECK: Without adenopathy or JVD. The patient does have a slow marly to his speech. NECK: Without adenopathy. HEART: Regular rate. ABDOMEN: Nontender. Bowel sounds present. EXTREMITIES: Upper extremity muscle strength judged to be 5/5 for the major muscle groups of the upper extremity. The patient without significant scoliosis, kyphosis or lordosis. The patient has a well-healed scar in the lower portion of his back. Has evidence by x-ray of rods and screws in the low back area. IMPRESSION: 1. 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 2. History of myofascial pain. 3. History of right shoulder pain. 4. Hypertension. 5. Anticoagulation secondary to heart stents. 6. History of rib fractures. 7. Hypercholesterolemia. RECOMMENDATIONS: We discussed treatment options with the patient. At this juncture, we will continue with the Voltaren gel to the affected areas. The patient will also be given a Medrol Dosepak to take in the interim. Hopefully, he will find that this is helpful in decreasing his discomfort. He will return to the Pain Clinic, at which time he will then undergo an epidural injection. He has found that transforaminal epidural steroid injections provide benefit. The risks and benefits of the Medrol Dosepak was described. Questions were sought and answered. He will follow up in the future as needed. [facility] [address] [place] [address] PAIN MANAGEMENT CONSULTATION Name: NELI CARTER Room #: REG [facility] Gaudencio.#: [id number] Admission: 09/30/19 Attend Phys: Laureen Toribio MD Discharge: Date of : 64 Report #: [id number] We would like to thank you for letting us participate in his care. We hope he continues to improve. <ELECTRONICALLY SIGNED> By: Laureen Toribio MD 10/06/19 [id number] [id number] Laureen Toribio MD /nt
== END ==
LOC: PAIN 06:49
DX: M54.17 Radiculopathy, lumbosacral region (principal); I10 Essential (primary) hypertension; E78.00 Pure hypercholesterolemia, unspecified; Z87.81 Personal history of (healed) traumatic fracture; Z79.899 Other long term (current) drug therapy

== ENCOUNTER → 2019-12-14 | Outpatient (CLI) | payer OTHER ==
[~2019-12-14] VITALS: Ht 172.7 cm; Wt 71.2 kg
[2019-12-14 09:44] VITALS: BP 124/83
--- NOTE | 2019-12-14 09:56 | NUR ---
Pain Clinic Assessment: 1. History of Osteoarthritis: DENIES History of Rheumatoid Arthritis: YES 2. Height: 5 ft. 8 in. 172.7 cm. Weight: 157.0 lb. oz. 71.215 kg. Patient's BMI: 23.9 3. Vital Signs: BP: 124/83 Pulse: 80 Resp: 14 Temp: 02 Sat: 99 ECG Mon: 4. Pain Intensity: 9 5. Fall Risk: Dizziness: N Needs help standing or walking: Y Fallen in the last 3 months: N Fall risk comments: 6. Patient on Blood Thinner: Clopidogrel Bisulf(Plavix 7. History of Hypertension: Y 8. Opioid Therapy greater than 6 weeks: Y Opiate Contract Signed: 9. Risk Assessment Tool Provided: 3-LOW 10. Functional Assessment Tool: 11. Recreational Drug Use: Never Drug Type: Tobacco Use: Current Every Day Smoker Tobacco Type: Cigarettes Amount or Packs/day: 1 How Many Years: Alcohol Use: Past use Frequency: Quant:
--- NOTE | 2019-12-26 09:03 | HPC ---
[facility] [place] [address] PAIN MANAGEMENT CONSULTATION Name: NELI CARTER Room #: REG [facility] Gaudencio#: [id number] Admission: 12/14/19 Attend Phys: Laureen Toribio MD Discharge: Date of : 64 Report #: [id number] THIS REPORT FOR: cc: TIM GUERRERO Physician not on staff Laureen Toribio MD ~ CC: Laureen Toribio Physician staff TIM GUERRERO DATE OF SERVICE: 12/14/2019 CHIEF COMPLAINT: Return of back pain and I would like to have another injection. HISTORY: The patient is a 59-year-old gentleman who has been followed in the pain clinic because of chronic low back pain. He has had back surgery. He continues to have pain and discomfort. He does have instrumentation in the lower portion of his back. He rates his pain as a 9/10 at this juncture. Epidural steroid injections in the past have been beneficial. He continues to have pain that radiates down into his left leg and down below his knee. He describes it as a chronic sharp, aching discomfort. There is a burning nature to it. Walking and sitting can exacerbate the discomfort. Notes sometimes the pain is improved when he lies down. Pain is helped with use of his medications. He has tried heat as well as ice. He has returned today with a desire to undergo an injection. He has gleaned greater than 50% improvement in the past with the injections. ALLERGIES: No known drug allergies. CURRENT MEDICATIONS: Lipitor 40 mg, nitroglycerin 0.4 mg sublingual, Voltaren gel 1% topical q.i.d., amitriptyline 25 mg at bedtime, gabapentin 600 mg q.i.d., Celexa 20 mg, Coreg 3.125 mg, Plavix 75 mg, Flexeril 10 mg, Pepcid 20 mg, multivitamins, vitamin D3, OxyContin 10 mg t.i.d., folic acid, fish oil, Restoril 20 mg, MiraLax 225 mg, vitamin B12, and vitamin D2. PAIN CLINIC ASSESSMENT AND PQRS: 1. The patient does have some rheumatologic changes in his hands. Has some pain and discomfort in his back as well as his shoulders. Height 5 feet 8 inches, weight 157 pounds, BMI is 23.9. 2. Vital signs: Blood pressure 124/83, pulse 80, respiratory rate 14, room air saturation 99%. 3. Pain intensity 04/05. 4. Fall risk. The patient has not fallen in the last 3 months. 5. Blood thinner. The patient is on Plavix, but has not taken it with the intent of [place] [address] PAIN MANAGEMENT CONSULTATION Name: NELI CARTER Room #: REG CLG[facility] Barrera#: [id number] Admission: 12/14/19 Attend Phys: Laureen Toribio MD Discharge: Date of : 64 Report #: [id number] 6. Risk assessment tool, low for opioid use. 7. Functional assessment tool . 8. Recreational drug use. The patient denies. 9. Tobacco: The patient has a history of smoking in the past. 10. Alcohol. The patient denies frequent use of alcoholic beverages. PHYSICAL EXAMINATION: GENERAL: The patient is a well-developed, well-nourished white male. Appears his stated age. He is alert and oriented x 3. His affect is appropriate. Speech is fluent. HEENT: Normocephalic, atraumatic. Extraocular eye muscles intact. Sclerae nonicteric. Mucous membranes are moist. NECK: Without adenopathy or JVD. The patient has a slow marly to his speech, which is normal for him. NECK: Without adenopathy. Heart rate regular. ABDOMEN: Nontender. Bowel sounds present. EXTREMITIES: Upper extremity muscle strength judged to be 5/5 for the major muscle groups in the upper extremity. The patient without significant scoliosis, kyphosis, or lordosis. The patient has a well-healed scar in the lower portion of his back. He has evidence of rods and screws in the lower lumbar area. IMPRESSION: 1. 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 2. History of myofascial pain. 3. History of right shoulder pain. 4. Hypertension. 5. Anticoagulation secondary to heart stents. 6. History of rib fracture. 7. Hypercholesterolemia. RECOMMENDATIONS: We discussed treatment options with the patient. Risks and benefits of an epidural steroid injection were discussed. Possible complications of the procedure were reviewed. They include but are not limited to infection, worsening of pain, no improvement in pain, bleeding, nerve damage, spinal headache. We also reminded the patient that Covid-19 is pandemic. We explained to him that steroids do decrease one's immunity should he become infected with Covid virus. After the injection, he may have a harder and more difficult time to survive. At this point, he feels that the pain is quite problematic. He is staying at home. He would like to proceed with the injection. PROCEDURE NOTE: The patient was taken to the procedure area. He was then assisted in getting on the examination table. His back was sterilely prepped [address] [address] PAIN MANAGEMENT CONSULTATION Name: NELI CARTER Room #: REG [facility]#: [id number] Admission: 12/14/19 Attend Phys: Laureen Toribio MD Discharge: Date of : 64 Report #: [id number] with a Betadine solution. The left and the right side were sterilely prepped. A 0.25% bupivacaine using a 25-gauge needle was utilized. The right side was sterilely prepped and anesthetized with the 0.25% bupivacaine. A 22-gauge spinal needle was then advanced into the appropriate place on the right side using the transforaminal approach. The left side was treated in a like fashion. The left side was infiltrated with 0.25% bupivacaine. A 22-gauge spinal needle was then advanced into the appropriate place. Fluoroscopy confirmed appropriate placement. A total of 80 mg Depo-Medrol was injected on the right side. A total of 80 mg Depo-Medrol was injected on the left side. The patient tolerated the procedure well. A total of 32 seconds fluoroscopy time was used. The patient remained in the pain clinic for an appropriate amount of time. He will follow up in the future as needed. We would like to thank you for letting us participate in his care. We hope he continues to improve. <ELECTRONICALLY SIGNED> By: Laureen Toribio MD 12/26/19 [id number] Laureen Toribio MD /nt
== END | disposition home or self-care (01) ==
LOC: PAIN 07:00
PROVIDERS: ATTEND Anesthesiology Pain Medicine
DX: M54.16 Radiculopathy, lumbar region (principal); G89.29 Other chronic pain

== ENCOUNTER → 2021-09-04 | Outpatient (CLI) | payer OTHER ==
[~2021-09-04] VITALS: Ht 172.7 cm; Wt 67.6 kg
[~2021-09-04] MED LIST changes: +VOLTAREN ARTHRI20 GM TOP
[2021-09-04 11:26] VITALS: BP 159/84
--- NOTE | 2021-09-04 11:39 | NUR ---
Pain Clinic Assessment: 1. History of Osteoarthritis: DENIES History of Rheumatoid Arthritis: YES 2. Height: 5 ft. 8 in. 172.7 cm. Weight: 149.0 lb. oz. 67.586 kg. Patient's BMI: 22.7 3. Vital Signs: BP: 159/84 Pulse: 61 Resp: 14 Temp: 02 Sat: 99 ECG Mon: 4. Pain Intensity: 7 5. Fall Risk: Dizziness: N Needs help standing or walking: N Fallen in the last 3 months: N Fall risk comments: 6. Patient on Blood Thinner: Clopidogrel Bisulf(Plavix 7. History of Hypertension: Y 8. Opioid Therapy greater than 6 weeks: Y Opiate Contract Signed: 9. Risk Assessment Tool Provided: 3-LOW 10. Functional Assessment Tool: 11. Recreational Drug Use: Never Drug Type: Tobacco Use: Current Every Day Smoker Tobacco Type: Cigarettes Amount or Packs/day: 1 pack How Many Years: 30 Alcohol Use: Past use Frequency: Quant:
== END | disposition home or self-care (01) ==
LOC: PAIN 10-26 08:57
PROVIDERS: ATTEND Anesthesiology Pain Medicine
DX: M54.16 Radiculopathy, lumbar region (principal); G89.29 Other chronic pain; I10 Essential (primary) hypertension; I25.10 Atherosclerotic heart disease of native coronary artery without angina pectoris; E78.00 Pure hypercholesterolemia, unspecified; M79.7 Fibromyalgia; F32.9 Major depressive disorder, single episode, unspecified; M19.90 Unspecified osteoarthritis, unspecified site; K21.9 Gastro-esophageal reflux disease without esophagitis; I25.2 Old myocardial infarction; F17.210 Nicotine dependence, cigarettes, uncomplicated; Z98.890 Other specified postprocedural states; Z79.899 Other long term (current) drug therapy; Z79.01 Long term (current) use of anticoagulants